=== PATIENT | female | born 1995 | race Caucasian/White ===

== ENCOUNTER 2016-08-12 15:48 | Emergency (ER) | payer SELFPAY ==
--- NOTE | 2016-08-12 16:04 | Emergency Department Record ---
History of Present Illness - General Chief Complaint: Shortness of breath Stated Complaint: SOB,PAIN IN CHEST Time Seen by Provider: 08/12/16 15:51 Source: Patient Mode of Arrival: Ambulatory Limitations: No limitations - History of Present Illness Initial Comments: 21 yo female presents to ED with a CC of "sharp" chest pain intermittently for the past 3 weeks. Patient denies fevers, chills, cough, or chest wall injury. Patient denies health problems at her baseline, denies calf swelling/pain, and denies history of DVT. MD Complaint: Anxiety, Chest pain Onset/Timin -: Week(s) Radiation: Other Severity: Moderate Severity scale (1-10): 7 Quality: Sharp Consistency: Constant, Intermittent Improves With: Nothing Worsens With: Nothing Context: Other Associated Symptoms: Chest pain, Other Treatments Prior to Arrival: None - Related Data Home Oxygen Therapy: No Previous Rx's Medication Instructions Recorded Lorazepam [Ativan] 0.5 mg PO Q4H PRN #5 tablet 08/12/16 Allergies Allergy/AdvReac Type Severity Reaction Status Date / Time No Known Allergies Allergy no allergy Verified 08/12/16 15:57 Travel Screening - Travel/Exposure Within Last 30 Days Have you traveled within the last 30 days?: No Review of Systems Constitutional: Denies: Chills, Fever, Malaise, Night sweats Eyes: Denies: Eye discharge, Eye pain ENT: Denies: Congestion, Ear pain, Epistaxis Respiratory: Denies: Cough, Dyspnea Cardiovascular: Reports: Chest pain. Denies: Dyspnea on exertion Endocrine: Denies: Fatigue, Heat or cold intolerance Gastrointestinal: Denies: Abdominal pain, Nausea, Vomiting Genitourinary: Denies: Dysuria, Frequency, Hematuria, Incontinence Musculoskeletal: Denies: Arthralgia, Back pain, Gout, Joint swelling Skin: Denies: Bruising, Change in color Neurological: Denies: Abnormal gait, Confusion, Headache, Seizure Psychiatric: Denies: Anxiety Hematological/Lymphatic: Denies: Anemia, Blood Clots Past Medical History - SOCIAL HISTORY Smoking Status: Current every day smoker Alcohol Use: None Drug Use: None - RESPIRATORY Hx Respiratory Disorders: No - CARDIOVASCULAR Hx Cardio Disorders: No - NEURO Hx Neuro Disorders: No - GI Hx GI Disorders: No - Hx Genitourinary Disorders: No - ENDOCRINE Hx Endocrine Disorders: No - MUSCULOSKELETAL Hx Musculoskeletal Disorders: No - PSYCH Hx Psych Problems: Yes Hx Anxiety: Yes - HEMATOLOGY/ONCOLOGY Hx Hematology/Oncology Disorders: No Family Medical History Any Significant Family History?: Yes Hx Heart Disease: Father Physical Exam - General General Appearance: Alert, Oriented x3, Cooperative, No acute distress, Anxious Limitations: No limitations - Head Head exam: Atraumatic, Normocephalic, Normal inspection Head exam detail: negative: Abrasion, Contusion, Sy's sign, General tenderness, Hematoma, Laceration - Eye Eye exam: Normal appearance. negative: Conjunctival injection, Periorbital swelling, Periorbital tenderness, Scleral icterus - ENT Ear exam: negative: Auricular hematoma, Auricular trauma Nasal Exam: negative: Active bleeding, Discharge, Dried blood, Foreign body Mouth exam: negative: Drooling, Laceration, Muffled voice, Tongue elevation - Neck Neck exam: Normal inspection. negative: Meningismus, Tenderness - Respiratory Respiratory exam: Normal lung sounds bilaterally. negative: Rales, Respiratory distress, Rhonchi, Stridor - Cardiovascular Cardiovascular Exam: Regular rate, Normal rhythm, Normal heart sounds - GI/Abdominal GI/Abdominal exam: Soft. negative: Rebound, Rigid, Tenderness - Rectal Rectal exam: Deferred - exam: Deferred - Extremities Extremities exam: Normal inspection. negative: Calf tenderness, Pedal edema, Tenderness - Back Back exam: Denies: CVA tenderness (R), CVA tenderness (L) - Neurological Neurological exam: Alert, Normal gait, Oriented X3 - Psychiatric Psychiatric exam: Anxious, Normal mood - Skin Skin exam: Normal color. negative: Abrasion Type of lesion: negative: abrasion Course Vital Signs 08/12/16 15:51 Temperature 97.3 F L Pulse Rate 84 Respiratory 16 Rate Blood Pressure 111/88 Pulse Ox 100 - Reevaluation(s) Reevaluation #1: 08/12/16 16:04 EKG: NSR 88 Normal axis, Normal intervals No acute ST-T wave changes Reevaluation #2: 08/12/16 16:14 Patient is PERC negative on examination, EKG is grossly unremarkable, CXR ordered for further evaluation. Patient reports feeling anxious as well as tingling in the upper extremities bilaterally, history is more c/w anxiety. Ativan ordered for her symptoms. Reevaluation #3: 08/12/16 17:37 CXR: No acute process Patient was updated on all results, reports that she is feeling much better, and patient's symptoms appear c/w anxiety. Patient appears stable for discharge at this time. Disposition Disposition: Discharge Clinical Impression: Anxiety Chest pain Qualifiers: Chest pain type: unspecified Qualified Code(s): R07.9 - Chest pain, unspecified Disposition: Home, Self-Care Condition: (2) Stable Instructions: Anxiety (ED) Additional Instructions: Return to ED if your symptoms worsen or if you have any concerns. Ativan as directed. Follow-up with your family doctor in 3-5 days as directed. Prescriptions: Lorazepam [Ativan] 0.5 mg PO Q4H PRN #5 tablet PRN Reason: Anxiety Forms: Patient Portal Access Time of Disposition: 17:39
[2016-08-12] MEDS ORDERED: LORAZEPAM 0.5 MG TABLET PO ONE (16:10)
== END 2016-08-12 17:48 | disposition home or self-care (01) ==
LOC: ER 15:48
DX: F41.9 Anxiety disorder, unspecified (principal); R07.9 Chest pain, unspecified; R06.02 Shortness of breath; F17.210 Nicotine dependence, cigarettes, uncomplicated
CPT/HCPCS: 71020; 93005; 93010; 99284